=== PATIENT | male | born 1990 | race Two or more races ===

== ENCOUNTER 2017-10-05 11:39 | Outpatient (CLI) | payer OTHER | END 2017-10-05 16:43 | disposition home or self-care (01) | LOC: LAB 11:39 | DX: E78.5 Hyperlipidemia, unspecified (principal); R51 Headache; Z00.00 Encounter for general adult medical examination without abnormal findings ==

== ENCOUNTER → 2017-10-05 | Outpatient (CLI) | payer OTHER ==
[~2017-10-05] VITALS: Ht 152.4 cm; Wt 99.3 kg
== END | disposition home or self-care (01) ==
LOC: PPHC 10:57
DX: M25.562 Pain in left knee (principal); Z00.8 Encounter for other general examination; Z00.00 Encounter for general adult medical examination without abnormal findings

== ENCOUNTER → 2017-10-14 | Outpatient (CLI) | payer OTHER | END | disposition home or self-care (01) | LOC: PPHC 09:21 | DX: M25.562 Pain in left knee (principal) ==

== ENCOUNTER 2017-11-18 08:00 | Outpatient (CLI) | payer OTHER | END 2017-11-18 17:00 | disposition home or self-care (01) | LOC: MRI 08:00 | DX: M25.562 Pain in left knee (principal); M17.31 Unilateral post-traumatic osteoarthritis, right knee | CPT/HCPCS: 73721 ==

== ENCOUNTER 2018-08-11 16:28 | Outpatient (CLI) | payer OTHER | END 2018-08-11 16:33 | disposition home or self-care (01) | LOC: LAB 16:28 | DX: E78.4 Other hyperlipidemia (principal); R42 Dizziness and giddiness; Z00.00 Encounter for general adult medical examination without abnormal findings ==

== ENCOUNTER 2020-05-21 19:36 | Emergency (ER) | payer OTHER ==
[~2020-05-21] VITALS: Ht 180.3 cm; Wt 111.1 kg
== END 2020-05-21 23:22 | disposition home or self-care (01) ==
LOC: ER 19:36
DX: I16.0 Hypertensive urgency (principal); I10 Essential (primary) hypertension; U07.1 COVID-19; B34.9 Viral infection, unspecified

== ENCOUNTER 2021-03-19 08:00 | Outpatient (CLI) | payer OTHER | END 2021-03-19 08:30 | disposition home or self-care (01) | LOC: PPH VACUNA 08:00 | PROVIDERS: ATTEND Emergency Medicine Pediatric Emergency Medicine | DX: Z23 Encounter for immunization (principal) ==

== ENCOUNTER 2021-07-03 09:00 | Outpatient (CLI) | payer OTHER | END 2021-07-03 09:15 | disposition home or self-care (01) | LOC: PPH VACUNA 09:00 | PROVIDERS: ATTEND Emergency Medicine Pediatric Emergency Medicine | DX: Z23 Encounter for immunization (principal) ==

== ENCOUNTER 2022-02-25 08:00 | Outpatient (CLI) | payer OTHER | END 2022-02-25 08:05 | disposition home or self-care (01) | LOC: PPH VACUNA 08:00 | PROVIDERS: ATTEND Emergency Medicine Pediatric Emergency Medicine | DX: Z23 Encounter for immunization (principal) ==

== ENCOUNTER 2022-12-24 06:12 | Outpatient (CLI) | payer OTHER | END 2022-12-24 06:13 | disposition home or self-care (01) | LOC: LAB 06:12 | PROVIDERS: ATTEND Internal Medicine | DX: I11.9 Hypertensive heart disease without heart failure (principal); Z13.220 Encounter for screening for lipoid disorders; Z13.29 Encounter for screening for other suspected endocrine disorder; E55.9 Vitamin D deficiency, unspecified; Z13.1 Encounter for screening for diabetes mellitus; Z13.9 Encounter for screening, unspecified ==

== ENCOUNTER → 2023-01-27 | Outpatient (CLI) | payer OTHER | END | disposition home or self-care (01) | LOC: NUCLEAR 08:00 | PROVIDERS: ATTEND Internal Medicine | DX: I11.9 Hypertensive heart disease without heart failure (principal); I34.0 Nonrheumatic mitral (valve) insufficiency ==

== ENCOUNTER 2023-04-19 13:44 | Outpatient (CLI) | payer OTHER | END 2023-04-19 13:55 | disposition home or self-care (01) | LOC: RAD 13:44 | PROVIDERS: ATTEND Internal Medicine | DX: M25.512 Pain in left shoulder (principal) ==